=== PATIENT | male | born 1980 | race Caucasian/White ===

== ENCOUNTER 2019-02-18 18:16 | Emergency (ER) | payer SELFPAY ==
[~2019-02-18] VITALS: Ht 165.1 cm; Wt 75.0 kg
[2019-02-18 18:25] VITALS: BP 128/86
[2019-02-18] MEDS ORDERED: FOLIC ACID 1 MG, THIAMINE HCL 100 MG, MVI, ADULT NO.1 10 ML in DEXTROSE 5% WATER 1,000 ML IV ONE ×4 (18:45)
[2019-02-18] MEDS ORDERED: ONDANSETRON HCL 4MG/2ML INJ IV ONE (18:45)
== END 2019-02-18 19:33 | disposition left against medical advice (07) ==
LOC: ER 18:16 → EDBD 18:16 → ER 19:33
DX: T51.0X1A Toxic effect of ethanol, accidental (unintentional), initial encounter (principal); G92 Toxic encephalopathy; Z98.890 Other specified postprocedural states; Y92.488 Other paved roadways as the place of occurrence of the external cause
CPT/HCPCS: 99283; J3411; J3490; J7070